=== PATIENT | female | born 1995 | race Caucasian/White ===

== ENCOUNTER 2022-06-30 01:12 | Emergency (ER) | payer OTHER, MEDICAID, SELFPAY ==
[2022-06-30 01:33] VITALS: BP 134/75; PULSE 69; RESP 20; TEMP 36.7; O2SAT 98; BMI 22.6
--- NOTE | 2022-06-30 03:00 | PC.NURSE ---
To room from triage - No acute distress - no needs voiced - PWD - no N/V/D
[2022-06-30 03:06] LABS: Add Manual Diff / Slide Review NO; Basophils Absolute Auto 0 /uL (0-100); Basophils Percent Auto 0.6 % (0-2); Eosinophils Absolute Auto 0 /uL (0-450); Eosinophils Percent Auto 0.7 % (2-4); Hematocrit 37.1 % (36-46); Hemoglobin 12.5 g/dL (12.0-16.0); Lymphocytes Absolute Auto 2600 /uL (1100-4500); Lymphocytes Percent Auto 44.2 % (25-40); Mean Corpuscular HGB Conc 33.7 % (30-36); Mean Corpuscular Hemoglobin 30.4 PG (26-34); Mean Corpuscular Volume 90.2 fL (80-100); Monocytes Absolute Auto 600 /uL (0-900); Monocytes Percent Auto 10.5 % (3-14); Neutrophils Absolute Auto 2600 /uL (1500-7000); Platelet Count 260 X10^3/uL (150-400); Red Blood Cell Count 4.12 X10^6/uL (4.0-5.2); Red Cell Distribution Width 13.6 % (11.6-14.8); White Blood Cell Count 5.8 X10^3/uL (4.5-11.0)
[2022-06-30 03:13] LABS: Alanine Aminotransferase 15 IU/L (<35); Albumin 4.7 g/dL (3.5-5.0); Albumin Globulin Ratio 1.7 (1.0-2.8); Alkaline Phosphatase 49 U/L (38-126); Aspartate Aminotransferase 16 IU/L (14-36); BUN Creatinine Ratio 14.7 (6-22); Bilirubin Total 0.3 mg/dL (0.2-1.3); Blood Urea Nitrogen 10 mg/dL (7-17); Calcium 8.9 mg/dL (8.4-10.2); Carbon Dioxide 23 mmol/L (22-32); Chloride 106 mmol/L (98-107); Estimated Glomerular Filt Rate > 60 mL/min (>60); Globulin 2.7 g/dL (1.7-4.1); Glucose 98 mg/dL (70-100); HEMOLYSIS < 15 (0-50); Lipase 44 U/L (23-300); Sodium 138 mmol/L (137-145); Total Protein 7.4 g/dL (6.3-8.2)
--- NOTE | 2022-06-30 03:30 | PC.NURSE ---
Resting quietly in NAD - no needs voiced - PWD - awaiting MD
--- NOTE | 2022-06-30 03:57 | ED_ITS ---
HPI - Abdominal Pain General Chief Complaint: Abdominal Pain Stated Complaint: weak/pain in abd./back Time Seen by Provider: 06/30/22 03:50 Source: patient Mode of arrival: Ambulatory Limitations: no limitations History of Present Illness HPI narrative: 26-year-old female with complaint of left upper abdominal pain that sometimes radiates to her flank sometimes her shoulder. Patient states no fevers or chills. Been going on for a couple days. Feels sort of bloody sometimes 3rd bubbles. Pain is actually much better right now. No fevers, no chills, no cold cough or congestion. No nausea or vomiting, no diarrhea constipation she is noted a little bit dysuria, some mild frequency. Patient has not had any vaginal discharge or bleeding. She denies any black or bloody stools. She states it feels like this sometimes when she is hung over but is more intense. She states sort of comes and goes. She denies any medical issues she has had a spinal fusion remotely for scoliosis. She does use tobacco daily, she states she is had increasing alcohol use frequently happen 1-2 daily. She uses THC but no other illicit. She is unsure about family history but states mom may or may not have a cardiac issue, she is a sister who is healthy. Review of Systems Review of Systems ROS Unobtainable: All systems reviewed & are unremarkable except as noted in HPI and below Patient History Social History Smoking Status: Current every day smoker Smoking Status: Current every day smoker tobacco type: vaping alcohol intake frequency: 0-2 drinks per day Alcohol type: beer Substance Use Type: marijuana Exam Narrative Exam Narrative: GENERAL: Alert and oriented x three, well-nourished female in mild distress HEENT: Head normocephalic, atraumatic, EOMI, pupils reactive, face symmetric, moist mucous membranes NECK: Supple, full range of motion CARDIOVASCULAR: Regular rate and rhythm without murmurs, rubs or gallops. RESPIRATORY: Breath sounds equal bilaterally, no wheezes rales or rhonchi. ABDOMEN: Soft, mild left upper quadrant tenderness. Normoactive bowel sounds all 4 quadrants. No guarding or rebound, rigidity, no mass : No CVA tenderness EXTREMITIES: Normal range of motion, no clubbing or edema. Neurovascularly intact NEUROLOGICAL: Cranial nerves II through XII grossly intact. Moving all extremities SKIN: Warm, dry, no petechiae, no rashes or lesions. Initial Vital Signs Initial Vital Signs: Vital Signs Temperature 98.0 F 06/30/22 01:33 Pulse Rate 69 06/30/22 01:33 Respiratory Rate 20 06/30/22 01:33 Blood Pressure 134/75 06/30/22 01:33 Pulse Oximetry 98 06/30/22 01:33 Oxygen Delivery Method 06/30/22 01:33 Course Orders Ordered: ED Orders 06/30/22 01:42 EKG-12 Lead Stat 06/30/22 02:52 Complete Blood Count AUTO DIFF Stat Comprehensive Metabolic Panel Stat Lipase Stat Troponin & CK Cardiac Panel Stat 06/30/22 04:08 CT abdomen pelvis w con Stat Vital Signs Vital signs: Vital Signs - 8 hr 06/30/22 01:33 Temperature 98.0 F Pulse Rate 69 Respiratory Rate 20 Blood Pressure 134/75 Pulse Oximetry 98 Oxygen Delivery Method Room Air MDM - Abdominal Pain Lab Data Result diagrams: 06/30/22 02:52 06/30/22 02:52 Labs: Lab Results 06/30/22 06/30/22 06/30/22 Range/Units 02:52 02:52 02:52 WBC 5.8 (4.5-11.0) X10^3/uL RBC 4.12 (4.0-5.2) X10^6/uL Hgb 12.5 (12.0-16.0) g/dL Hct 37.1 (36-46) % MCV 90.2 (80-100) fL MCH 30.4 (26-34) PG MCHC 33.7 (30-36) % RDW 13.6 (11.6-14.8) % Plt Count 260 (150-400) X10^3/uL Neut % (Auto) 44.0 L (50-75) % Lymph % (Auto) 44.2 H (25-40) % [place] % (Auto) 10.5 (3-14) % Eos % (Auto) 0.7 L (2-4) % Baso % (Auto) 0.6 (0-2) % Neut # (Auto) 2600 (1759-3367) /uL Lymph # (Auto) 2600 (0956-4408) /uL [place] # (Auto) 600 (0-900) /uL Eos # (Auto) 0 (0-450) /uL Baso # (Auto) 0 (0-100) /uL Sodium 138 (137-145) mmol/L Potassium 4.0 (3.4-5.1) mmol/L Chloride 106 (98-107) mmol/L Carbon Dioxide 23 (22-32) mmol/L BUN 10 (7-17) mg/dL Creatinine 0.68 (0.52-1.04) mg/dL Estimated GFR > 60 (>60) mL/min BUN/Creatinine Ratio 14.7 (6-22) Glucose 98 (70-100) mg/dL Calcium 8.9 (8.4-10.2) mg/dL Total Bilirubin 0.3 (0.2-1.3) mg/dL AST 16 (14-36) IU/L ALT 15 (<35) IU/L Alkaline Phosphatase 49 (38-126) U/L Total Creatine Kinase 65 (30-135) U/L CK-MB (CK-2) TNP CK-MB (CK-2) Rel Index TNP Troponin I < 0.012 (0.01-0.034) ng/mL Total Protein 7.4 (6.3-8.2) g/dL Albumin 4.7 (3.5-5.0) g/dL Globulin 2.7 (1.7-4.1) g/dL Albumin/Globulin Ratio 1.7 (1.0-2.8) Lipase 44 (23-300) U/L Point of care testing: Point of Care Testing Test Results Negative Urine Dip Bedside Urine Glucose Negative Bedside Urine Bilirubin - Negative Bedside Urine Ketone - Negative Urine Specific Antelope 1.015 Bedside Urine Occult Blood - Negative Bedside Urine pH 6.5 Bedside Urine Protein - Negative Bedside Urine Urobilinogen - Negative Bedside Urine Nitrite - Negative Bedside Urine Leukocytes - Negative Esterase Imaging Data CT scan - abdomen/pelvis: Radiologist's Impression: Diverticulosis coli without evidence of acute diverticulitis. Follicular activity both ovaries. Partially decompressed urinary bladder. Hurting rods causing streak affect. Significant discogenic changes L4-L5 level. ECG Data Attestation: I personally reviewed and interpreted this ECG as follows: Prior ECG tracings: not available for review Interpretation: Sinus bradycardia rate of 53 NH 146 QRS of 98 QTC 424. MDM Narrative Medical decision making narrative: 26 year old female with complaint of left upper quadrant abdominal pain sometimes radiates to the back. Patient's labs, urine are all negative. Troponin was included as it sometimes radiates up to her shoulder. Patient is mildly tender in left upper quadrant. Vitals overall reassuring. After discussion risks versus benefits CT abdomen pelvis was obtained there is some delay in receiving reports. Patient has diverticulosis but no diverticulitis. No other clear cause for her symptoms today reviewed her findings. Plan for follow-up. Discharge Plan Departure Patient Disposition: Home Clinical Impression: Abdominal pain Instructions: DI for Diverticulosis Activity Restrictions/Additional Instructions: Your imaging today shows diverticulosis but no signs of infection or other changes. If you know that alcohol seems to worsen your symptoms I would recommend decreasing your alcohol intake to see if this is helpful. Please return for fevers, rapidly worsening pain, passing out, new chest pain or shortness of breath, persistent vomiting, black or bloody stools or other new or concerning symptoms. Visit Report Forms: Patient Portal/API
--- NOTE | 2022-06-30 04:08 | DI.CT.S_ITS ---
PROCEDURE: CT ABDOMEN PELVIS W CON INDICATIONS: abd pain, LUQ/sometimes flank TECHNIQUE: After the administration of intravenous contrast, axial sections acquired from the lung bases to the pubic symphysis. Coronal and sagittal reformats were performed. For radiation dose reduction, the following was used: automated exposure control, adjustment of mA and/or kV according to patient size. COMPARISON: None. FINDINGS: Lower thorax: The lung bases are clear. Heart size normal. No hiatal hernia. Liver: Normal in size and attenuation. No contour deformity present. Biliary system: No calcified cholelithiasis or pericholecystic inflammation. No intra or extrahepatic bile duct dilatation. Pancreas: Unremarkable without mass or inflammation evident. Spleen: Normal in size and density. Adrenals: Normal morphology and density. Reproductive system: Unremarkable as visualized. Urinary system: Normal renal size and attenuation. 1 mm nonobstructive left renal calculus noted. No hydronephrosis bilaterally. Urinary bladder unremarkable. Gastrointestinal system: The bowel is unremarkable without evidence of bowel obstruction or inflammation. The stomach appears unremarkable. Multiple diverticula arise from the sigmoid colon without evidence of diverticulitis. Appendix: No findings to suggest acute appendicitis. Peritoneal spaces: No mesenteric or retroperitoneal adenopathy. No free air. No free fluid. Vasculature: The IVC, aorta and iliac vasculature are unremarkable. Abdominal wall: Abdominal wall intact without evidence of ventral or inguinal hernias. Musculoskeletal: Normal bone mineralization. No acute fractures. Thoracolumbar convex left instrumented scoliosis noted. IMPRESSION: 1. No acute CT findings in the abdomen and pelvis. 2. Incidental nonobstructive left renal calculus. No hydronephrosis. 3. Additional chronic findings as above Approved by: Basilio Roberto M.D. on 06/30/2022 at 8:02
--- NOTE | 2022-06-30 04:14 | PC.NURSE ---
To radiology via stretcher with tech
--- NOTE | 2022-06-30 04:23 | PC.NURSE ---
Returns to the ER from radiology via stretcher with tech
[2022-06-30 04:24] LABS: Creatine Kinase 65 U/L (30-135)
[2022-06-30 04:37] LABS: Troponin I < 0.012 ng/mL (0.01-0.034)
--- NOTE | 2022-06-30 05:00 | PC.NURSE ---
Resting quietly in NAD with respirations equal and unlabored bilaterally - no needs voiced - awaiting results
--- NOTE | 2022-06-30 05:30 | PC.NURSE ---
No changes in pt status at this time
--- NOTE | 2022-06-30 06:00 | PC.NURSE ---
Awaiting results - no needs voiced - PWD - no needs voiced
[2022-06-30 07:00] VITALS: BP 132/72; PULSE 68; RESP 16; O2SAT 97
== END 2022-06-30 07:01 | disposition home or self-care (01) ==
PROVIDERS: Emergency Provider Emergency Medicine
DX: R10.12 Left upper quadrant pain (principal)
CPT/HCPCS: 36415; 74177; 80053; 81003; 81025; 82550; 83690; 84484; 85025; 93005; 99283; 99284; Q9967